=== PATIENT | female | born 1995 | race Caucasian/White ===

== ENCOUNTER 2017-05-27 14:04 | Emergency (ER) | payer SELFPAY ==
[~2017-05-27] VITALS: Ht 157.5 cm; Wt 51.0 kg
[~2017-05-27 14:04] MED LIST: Z.0.NO CURRENT MEDS
[2017-05-27 14:09] VITALS: BP 114/82; PULSE 95; RESP 17; TEMP 97.9; O2SAT 100
== END 2017-05-27 15:15 | disposition left against medical advice (07) ==
LOC: NED 14:04
DX: Z53.21 Procedure and treatment not carried out due to patient leaving prior to being seen by health care provider (principal)
CPT/HCPCS: 99281